=== PATIENT | female | born 1990 | race Caucasian/White ===

== ENCOUNTER 2017-09-01 15:34 | Outpatient (CLI) | payer OTHER | END 2017-09-01 15:35 | disposition home or self-care (01) | LOC: MADLABBHPM 15:34 | PROVIDERS: ATTEND Family Medicine | DX: N76.0 Acute vaginitis (principal); N94.89 Other specified conditions associated with female genital organs and menstrual cycle; Z72.51 High risk heterosexual behavior; Z71.1 Person with feared health complaint in whom no diagnosis is made | CPT/HCPCS: 87480; 87491; 87510; 87591; 87660 ==

== ENCOUNTER 2019-09-20 21:40 | Emergency (ER) | payer OTHER, SELFPAY ==
[2019-09-20] MEDS ORDERED: Sodium Chloride 0.9% 1,000 ML ONE (22:11)
[2019-09-20 22:42] LABS: Bilirubin Negative (Negative); Blood, Urine Moderate (Negative); Glucose, Urine (Dipstick) Negative (Negative); Leukocyte Moderate (Negative); Nitrite Negative (Negative); Protein, Urine (Dipstick) 100 mg/dL (Neg-Trace)
[2019-09-20 22:43] LABS: Clarity CLOUDY (Clear); Pregnancy Test - Urine (BHCG) Negative (Negative); Pregu Control Background? CLEAR/WHITE (CLR/WHITE); Pregu Control Bar Appear? YES (CONTROL BAR)
[2019-09-20 22:45] LABS: WBC/HPF Greater than 50 HPF (0-3)
[2019-09-20 22:46] LABS: Bacteria/HPF 3+ HPF (None Seen)
[2019-09-20 22:57] LABS: ALT (SGPT) 19 U/L (8-55); AST (SGOT) 16 U/L (5-34); Albumin 4.2 g/dL (3.5-5.0); Alkaline Phosphatase 77 U/L (40-110); Anion Gap 16 mmol/L (10-20); BUN (Urea Nitrogen) 9 mg/dL (7.0-18.7); Bilirubin, Total 0.5 mg/dL (0.2-1.2); Calc. Creatinine Clearance 0 mL/min (70-130); Carbon Dioxide 24 mmol/L (22-29); Chloride 98 mmol/L (98-107); Estimated GFR-MDRD 81; Globulin 3.3 g/dL (2.4-3.5); Glucose 101 mg/dL (70-105); Lipase 5 U/L (8-78); Potassium 3.9 mmol/L (3.5-5.1); Protein, Total 7.5 g/dL (6.0-8.3); Sodium 134 mmol/L (136-145)
[2019-09-20 23:10] LABS: Band 11 % (5-11); Hemoglobin 13.1 g/dL (12.0-16.0); Lymphocytes 7 % (21-51); MDiff Complete? YES; Mean Corpuscular HGB CONC 33.9 g/dL (32.0-36.0); Mean Corpuscular Hemoglobin 31.3 pg (27.0-31.0); Mean Corpuscular Volume 92.3 fL (78.0-98.0); Mean Platelet Volume 7.5 fL (7.4-10.4); Monocytes 11 % (0-10); Neutrophil 71 % (42-75); Platelet Count 146 thou/uL (130-400); RBC Distribution Width 11.2 % (11.5-14.5); Red Blood Cell (RBC) Count 4.17 mill/uL (4.20-5.40); White Blood Cell (WBC) Count 17.6 thou/uL (4.8-10.8)
[2019-09-20] MEDS ORDERED: Cipro 250 MG TAB ONE (23:16)
== END 2019-09-20 23:30 | disposition home or self-care (01) ==
LOC: MADERS 21:40
DX: N10 Acute pyelonephritis (principal)
CPT/HCPCS: 36415; 80053; 81003; 81015; 81025; 83690; 85025; 87804; 96360; J7050